=== PATIENT | female | born 1955 | race Caucasian/White ===

== ENCOUNTER 2021-11-13 16:52 | Emergency (ER) | payer MEDICARE ==
[2021-11-13] MEDS ORDERED: Ketorolac 60 MG/2 ML SDV IM ONE (17:23)
[2021-11-13] MEDS ORDERED: traMADol 50 MG Tab ONE (17:30)
[2021-11-13] MEDS ORDERED: Ketorolac 60 MG/2 ML SDV ONE (17:32)
== END 2021-11-13 17:58 | disposition home or self-care (01) ==
LOC: LB.ED 16:52
DX: S30.0XXA Contusion of lower back and pelvis, initial encounter (principal); W22.8XXA Striking against or struck by other objects, initial encounter
CPT/HCPCS: 72100; 96372; 99283; A9270; J1885